=== PATIENT | female | born 1970 | race Caucasian/White ===

== ENCOUNTER 2022-08-01 18:25 | Inpatient (IN) | payer OTHER ==
[~2022-08-01] VITALS: Ht 165.1 cm; Wt 83.9 kg
[2022-08-01 18:32] VITALS: BP 185/116
--- NOTE | 2022-08-01 18:38 | NUR ---
pt ambulatory to bed 07
--- NOTE | 2022-08-01 18:48 | NUR ---
Lab at bedside.
--- NOTE | 2022-08-01 18:53 | NUR ---
Dr. Ng evaluating patient at bedside.
[2022-08-01 18:56] LABS: BASOPHILS # (AUTO) 0.1 K/uL (0.00-0.22); EOSINOPHILS # (AUTO) 0.1 K/uL (0-0.4); HEMATOCRIT 41.5 % (36-48); HEMOGLOBIN 14.2 g/dL (12.0-16.0); LYMPHOCYTES # (AUTO) 2.5 K/uL (2.5-16.5); LYMPHOCYTES % (AUTO) 37.6 % (20.5-51.1); MEAN CORPUSCULAR HEMOGLOBIN 30 pg (27-31); MEAN CORPUSCULAR HGB CONC 34 g/dL (33-37); MEAN CORPUSCULAR VOLUME 86.7 fL (80-94); MONOCYTES # (AUTO) 0.5 K/uL (0.8-1.0); MONOCYTES % (AUTO) 7.1 % (1.7-9.3); NEUTROPHILS # (AUTO) 3.5 K/uL (1.8-7.7); NEUTROPHILS % (AUTO) 52.3 % (42.2-75.2); PLATELET COUNT (AUTO) 309 K/uL (140-450); RED BLOOD CELL COUNT(AUTO) 4.79 MIL/uL (4.20-5.40); RED CELL DISTRIBUTION WIDTH 13.3 % (11.6-13.7); WHITE BLOOD COUNT (AUTO) 6.7 K/uL (4.8-10.8)
[2022-08-01 18:59] LABS: APPEARANCE,URINE CLEAR (CLEAR); BILIRUBIN,URINE NEGATIVE (NEGATIVE); BLOOD, URINE 3+ (NEGATIVE); COLOR,URINE YELLOW (YELLOW); LEUKOCYTE ESTERASE ,URINE NEGATIVE (NEGATIVE); NITRITE, URINE NEGATIVE (NEGATIVE); PH,URINE 6.5 (5.0-9.0); UGLUCOSE 3+ (NEGATIVE)
--- NOTE | 2022-08-01 19:12 | NUR ---
Ultrasound at bedside.
[2022-08-01 19:13] LABS: ALBUMIN 2.5 g/dL (3.4-5.0); ANION GAP 9.9 (8-16); CARBON DIOXIDE 29.2 mmol/L (21-32); CREATININE 1.7 mg/dL (0.6-1.3); POTASSIUM 4.1 mmol/L (3.5-5.1); TOTAL BILIRUBIN 0.2 mg/dL (0.0-1.0)
[2022-08-01 19:19] LABS: RBC,URINE 11-20 (MOD) /HPF (0-5)
--- NOTE | 2022-08-01 19:26 | NUR ---
Report given to SAMMY Hamilton for transfer of care.
[2022-08-01] MEDS ORDERED: ASPIRIN 325 MG TAB PO ONE (19:30)
[2022-08-01] MEDS ORDERED: hydrALAZINE 20 MG/ML VIAL IM ONE (20:45)
--- NOTE | 2022-08-01 21:15 | NUR ---
pt ambulatory to restroom without assistance
[2022-08-01] MEDS ORDERED: NITROGLYCERIN 0.4 MG TAB SL PRN (21:30)
--- NOTE | 2022-08-01 21:30 | NUR ---
CLINICALS AND FACESHEET FAXED
--- NOTE | 2022-08-01 22:54 | NUR ---
Patient will be admitted to care of Dr. Nj. Admited to Tele. Will go to [id number]. Belongings list completed. Report to Sofia.
--- NOTE | 2022-08-01 23:00 | NUR ---
ADMITTED PATIENT TO [facility] UNIT FROM ER VIA GURNEY WITH THE CC: MILD ABDOMINAL RLQ PAIN RADIATING TO THE BACK. PATIENT AWAKE ALERT ORIENTED X4, AMBULATORY. MRSA SCREENING DONE. CALL LIGHT WITHIN REACH. SAFETY MEASURES ARE IN PLACE. INSTRUCTED PATIENT TO BE NPO WITH UNDERSTANDING.
--- NOTE | 2022-08-01 23:44 | NUR ---
RECEIVED A CALL FROM [facility] REPORTING CRITICAL LAB VALUE TROPONIN 381. NOTIFIED DR. ROMERO, NO NEW ORDER MADE.
[2022-08-02] VITALS: BP 165/91
--- NOTE | 2022-08-02 00:30 | NUR ---
PATIENT BP 165/91 P-84. DR ROMERO MADE AWARE WITH ORDER TO CONTINUE TO MONITOR BP, NOTED.
[2022-08-02] MEDS: ACETAMINOPHEN 325 MG TAB PO PRN ×3 (01:14→20:34)
--- NOTE | 2022-08-02 01:14 | NUR ---
PATIENT COMPLAINED OF ABDOMINAL PAIN. MEDICATED.
--- NOTE | 2022-08-02 03:56 | NUR ---
TY FROM LAB CALLED REPORTING CRITICAL LAB VALUE TROPONIN 349 TRENDING DOWN.
[2022-08-02 04:00] VITALS: BP 145/78
--- NOTE | 2022-08-02 07:15 | NUR ---
RECEIVED REPORT FROM APPLICATIONS SYSTEMS ANALYST NURSE FOR CONTINUITY OF CARE. PT STABLE AT THIS TIME.
--- NOTE | 2022-08-02 07:16 | NUR ---
GAVE BEDSIDE REPORT TO AMEE ROSENBAUM FOR CONTINUITY OF CARE. PATIENT STABLE.
[2022-08-02 08:00] VITALS: BP 155/94
[2022-08-02] MEDS ORDERED: lisinopriL 20 MG TAB PO SCH ×2 (09:00→13:10)
[2022-08-02] MEDS ORDERED: METOPROLOL 25 MG TAB PO SCH (09:00)
[2022-08-02] MEDS ORDERED: ATORVASTATIN 20 MG TAB PO SCH (09:00)
[2022-08-02] MEDS ORDERED: ENOXAPARIN 40 MG/0.4 ML SYR SUBQ SCH (09:00)
[2022-08-02] MEDS: ASPIRIN 81 MG TAB.CHEW PO SCH (09:52)
[2022-08-02 11:45] LABS: BASOPHILS % (AUTO) 0.7 % (0.0-2.0); EOSINOPHILS # (AUTO) 0.1 K/uL (0-0.4); EOSINOPHILS % (AUTO) 2.7 % (0.0-4.0); HEMATOCRIT 37.7 % (36-48); HEMOGLOBIN 12.9 g/dL (12.0-16.0); LYMPHOCYTES # (AUTO) 2.3 K/uL (2.5-16.5); LYMPHOCYTES % (AUTO) 43.1 % (20.5-51.1); MEAN CORPUSCULAR HEMOGLOBIN 29 pg (27-31); MEAN CORPUSCULAR HGB CONC 34 g/dL (33-37); MONOCYTES # (AUTO) 0.3 K/uL (0.8-1.0); MONOCYTES % (AUTO) 6.4 % (1.7-9.3); NEUTROPHILS # (AUTO) 2.5 K/uL (1.8-7.7); NEUTROPHILS % (AUTO) 47.1 % (42.2-75.2); PLATELET COUNT (AUTO) 273 K/uL (140-450); RED BLOOD CELL COUNT(AUTO) 4.39 MIL/uL (4.20-5.40); RED CELL DISTRIBUTION WIDTH 13.2 % (11.6-13.7); WHITE BLOOD COUNT (AUTO) 5.4 K/uL (4.8-10.8)
[2022-08-02 12:00] VITALS: BP 156/95
[2022-08-02 12:17] LABS: ANION GAP 9.4 (8-16); CARBON DIOXIDE 25.4 mmol/L (21-32); CREATININE 1.1 mg/dL (0.6-1.3); POTASSIUM 3.8 mmol/L (3.5-5.1); TOTAL BILIRUBIN 0.2 mg/dL (0.0-1.0)
[2022-08-02 16:00] VITALS: BP 174/88
[2022-08-02] MEDS: hydrALAZINE 20 MG/ML VIAL IVP PRN (17:01)
--- NOTE | 2022-08-02 19:25 | NUR ---
ENDORSED PT TO BOTTOM TURNING LATHE TURNER NURSE FOR CONTINUITY OF CARE. PT IS STABLE AT THIS TIME.
--- NOTE | 2022-08-02 19:26 | NUR ---
RECD. RESTING IN BED, AWAKE, A/OX4. RESPIRATION EVEN AND UNLABORED. COLOR NORMAL PER ETHNICITY. IV SALINE LOCK AT THE RIGHT FOREARM G20, PATENT AND INTACT. AMBULATORY TO THE BR. DENIES PAIN 0/10.
[2022-08-02 20:00] VITALS: BP 135/71
[2022-08-02] MEDS: lisinopriL 20 MG TAB PO SCH (20:33)
[2022-08-02] MEDS: carvediloL 6.25 MG TAB PO SCH (20:33)
--- NOTE | 2022-08-02 20:33 | NUR ---
BP - 135/71, HR - 75. MEDICATED WITH SCHEDULED MEDICATIONS PER MD ORDER.
--- NOTE | 2022-08-02 22:00 | NUR ---
RESTING IN BED, WATCHING TV.
[2022-08-03] VITALS: BP 110/71
--- NOTE | 2022-08-03 | NUR ---
SLEEPING COMFORTABLY IN BED. RESPIRATION EVEN AND UNLABORED.
--- NOTE | 2022-08-03 02:00 | NUR ---
CHECKED PATIENT, SLEEPING ON HER RIGHT SIDE. COMFORTABLE IN BED.
--- NOTE | 2022-08-03 02:48 | NUR ---
Patient's Plan of Care was discussed and reviewed with SAMMY: LUZ
[2022-08-03 04:00] VITALS: BP 132/78
--- NOTE | 2022-08-03 04:00 | NUR ---
VS STABLE. NO COMPLAINT OF PAIN. SR WITH BBB ON TELE MONITORING.
--- NOTE | 2022-08-03 06:00 | NUR ---
STILL SLEEPING COMFORTABLY IN BED. RESPIRATION EVEN AND UNLABORED. CALL LIGHT IN REACH.
[2022-08-03 06:56] LABS: BASOPHILS % (AUTO) 0.7 % (0.0-2.0); EOSINOPHILS # (AUTO) 0.2 K/uL (0-0.4); EOSINOPHILS % (AUTO) 3.4 % (0.0-4.0); HEMATOCRIT 37.5 % (36-48); HEMOGLOBIN 12.8 g/dL (12.0-16.0); LYMPHOCYTES # (AUTO) 2.5 K/uL (2.5-16.5); LYMPHOCYTES % (AUTO) 39.9 % (20.5-51.1); MEAN CORPUSCULAR HEMOGLOBIN 30 pg (27-31); MEAN CORPUSCULAR HGB CONC 34 g/dL (33-37); MEAN CORPUSCULAR VOLUME 86.8 fL (80-94); MONOCYTES # (AUTO) 0.5 K/uL (0.8-1.0); MONOCYTES % (AUTO) 7.9 % (1.7-9.3); NEUTROPHILS % (AUTO) 48.1 % (42.2-75.2); PLATELET COUNT (AUTO) 277 K/uL (140-450); RED BLOOD CELL COUNT(AUTO) 4.32 MIL/uL (4.20-5.40); RED CELL DISTRIBUTION WIDTH 13.3 % (11.6-13.7); WHITE BLOOD COUNT (AUTO) 6.3 K/uL (4.8-10.8)
[2022-08-03 07:10] LABS: ANION GAP 9.5 (8-16); CARBON DIOXIDE 25.8 mmol/L (21-32); CREATININE 1.2 mg/dL (0.6-1.3); POTASSIUM 4.3 mmol/L (3.5-5.1); TOTAL BILIRUBIN 0.2 mg/dL (0.0-1.0)
--- NOTE | 2022-08-03 07:15 | NUR ---
CONDITION REMAIN STABLE. ENDORSED TO ILSA LUBIN FOR CONTINUITY OF CARE.
--- NOTE | 2022-08-03 07:15 | NUR ---
RECEIVED REPORT FROM SCALE MECHANIC NURSE FOR CONTINUITY OF CARE. PT STABLE AT THIS TIME.
[2022-08-03 08:00] VITALS: BP 143/83
[2022-08-03] MEDS: lisinopriL 20 MG TAB PO SCH ×2 (08:38→20:07)
[2022-08-03] MEDS: ASPIRIN 81 MG TAB.CHEW PO SCH (08:38)
[2022-08-03] MEDS: carvediloL 6.25 MG TAB PO SCH ×2 (08:39→20:07)
[2022-08-03] MEDS: ATORVASTATIN 20 MG TAB PO SCH (08:39)
[2022-08-03] MEDS: ENOXAPARIN 40 MG/0.4 ML SYR SUBQ SCH (08:39)
--- NOTE | 2022-08-03 10:03 | NUR ---
PATIENT HAS BEEN SCREENED AND CATEGORIZED MODERATE NUTRITION RISK. PATIENT WILL BE SEEN WITHIN 3-5 DAYS OF ADMISSION. 08/01/22-08/06/[address]
[2022-08-03] MEDS ORDERED: INSULIN LISPRO SLIDING SCALE 100 UNITS/ML VIAL SUBQ PRN (11:15)
[2022-08-03] MEDS ORDERED: DEXTROSE 50% 50 ML SYR IVP PRN (11:25)
[2022-08-03] MEDS: BLOOD GLUCOSE MONITORING 1 DEV DEV FS SCH ×3 (11:48→20:07)
[2022-08-03] MEDS: INSULIN LISPRO SLIDING SCALE 100 UNITS/ML VIAL SUBQ PRN ×3 (11:51→20:08)
[2022-08-03 12:00] VITALS: BP 146/85
[2022-08-03] MEDS ORDERED: REGADENOSON 0.4 MG/5 ML SYR IV SCH (15:45)
[2022-08-03 16:00] VITALS: BP 146/78
--- NOTE | 2022-08-03 19:16 | NUR ---
ENDORSED PT TO INTERPRETIVE PROGRAM COORDINATOR NURSE FOR CONTINUITY OF CARE. PT IS STABLE AT THIS TIME.
--- NOTE | 2022-08-03 19:20 | NUR ---
RECEIVED PT IN BED AWAKE, ALERT AND ORIENTED X 4. FAMILY MEMBERS AT THE BEDSIDE. DENIES PAIN. DENIES SHORTNESS OF BREATH. SKIN WARM AND DRY TO TOUCH. SAFETY PRECAUTIONS IN PLACE, CALL LIGHT IN REACH, ENCOURAGED TO CALL IF ASSISTANCE IS NEEDED, PT VERBALLY ACKNOWLEDGED.
[2022-08-03 19:53] VITALS: BP 164/92
--- NOTE | 2022-08-03 20:10 | NUR ---
SCHEDULED MEDICATIONS GIVEN ORDERED. BS-248 MG/DL, INSULIN GIVEN PER SLIDING SCALE COVERAGE ORDERED.
--- NOTE | 2022-08-03 20:25 | NUR ---
PROVIDED HS SNACKS. PT AWARE OF NPO STATUS AFTER MIDNIGHT.
[2022-08-04] VITALS: BP 147/81
--- NOTE | 2022-08-04 | NUR ---
VITAL SIGNS TAKEN AND DOCUMENTED, WITHIN NORMAL LIMITS. REMINDED PT, CURRENTLY NPO, PT VERBALLY ACKNOWLEDGED. DENIES PAIN. CALL LIGHT WITHIN REACH.
[2022-08-04 04:00] VITALS: BP 149/79
[2022-08-04 05:29] LABS: BASOPHILS % (AUTO) 0.5 % (0.0-2.0); EOSINOPHILS # (AUTO) 0.2 K/uL (0-0.4); EOSINOPHILS % (AUTO) 3.1 % (0.0-4.0); HEMATOCRIT 39.5 % (36-48); HEMOGLOBIN 13.5 g/dL (12.0-16.0); LYMPHOCYTES # (AUTO) 2.9 K/uL (2.5-16.5); LYMPHOCYTES % (AUTO) 44.7 % (20.5-51.1); MEAN CORPUSCULAR HEMOGLOBIN 30 pg (27-31); MEAN CORPUSCULAR HGB CONC 34 g/dL (33-37); MEAN CORPUSCULAR VOLUME 87.5 fL (80-94); MONOCYTES # (AUTO) 0.4 K/uL (0.8-1.0); NEUTROPHILS # (AUTO) 2.9 K/uL (1.8-7.7); NEUTROPHILS % (AUTO) 45.7 % (42.2-75.2); PLATELET COUNT (AUTO) 282 K/uL (140-450); RED BLOOD CELL COUNT(AUTO) 4.52 MIL/uL (4.20-5.40); RED CELL DISTRIBUTION WIDTH 13.2 % (11.6-13.7); WHITE BLOOD COUNT (AUTO) 6.4 K/uL (4.8-10.8)
[2022-08-04 05:37] LABS: ANION GAP 9.3 (8-16); CARBON DIOXIDE 28.3 mmol/L (21-32); CREATININE 1.1 mg/dL (0.6-1.3); POTASSIUM 4.6 mmol/L (3.5-5.1)
[2022-08-04] MEDS: BLOOD GLUCOSE MONITORING 1 DEV DEV FS SCH ×3 (06:30→16:30)
[2022-08-04] MEDS: INSULIN LISPRO SLIDING SCALE 100 UNITS/ML VIAL SUBQ PRN (06:32)
--- NOTE | 2022-08-04 06:42 | NUR ---
PATIENT IS ASLEEP. NO DISTRESS NOTED. ALL NEEDS ATTENDED TO. SAFETY PRECAUTIONS MAINTAINED DURING THE SHIFT, CALL LIGHT REMAINS WITHIN REACH.
[2022-08-04 08:00] VITALS: BP 171/82
[2022-08-04] MEDS: hydrALAZINE 20 MG/ML VIAL IVP PRN (10:09)
[2022-08-04] MEDS: lisinopriL 20 MG TAB PO SCH (10:10)
[2022-08-04] MEDS: ASPIRIN 81 MG TAB.CHEW PO SCH (10:10)
[2022-08-04] MEDS: carvediloL 6.25 MG TAB PO SCH (10:10)
[2022-08-04] MEDS: ATORVASTATIN 20 MG TAB PO SCH (10:11)
[2022-08-04] MEDS: ENOXAPARIN 40 MG/0.4 ML SYR SUBQ SCH (10:12)
--- NOTE | 2022-08-04 12:07 | NUR ---
DC [age] YRS OLD FEMALE PATIENT WAS ADMITTED FROM HOME WITH A DX OF NSTEMI AND HTN EMERGENCY PATENT HAS A HX OF FIBROSIS. CXR SHOWED PROMINENT PULMONARY VASCULARITY. PELVIS ULTRASOUND SHOWED SMALL INTRAMURAL FIBROID IN THE ANTERIOR UTERUS. RAPID COVID TEST NEGATIVE. ADMINISTERED ACS PROTOCOL MEDS. SEEN BY CARDIO AND ORDERED DELANEY SCAN AT 11:30 . DC PLAN AWAITING FOR DELANEY SCAN RESULT. CM TO FOLLOW
[2022-08-04] MEDS: ACETAMINOPHEN 325 MG TAB PO PRN (14:10)
[2022-08-04] MEDS ORDERED: CARV6.252 PO (14:53)
[2022-08-04] MEDS ORDERED: ASPI81CT95 PO (14:53)
[2022-08-04] MEDS ORDERED: LISI20TA29 PO (14:53)
[2022-08-04] MEDS ORDERED: ATOR20TA40 PO (14:53)
[2022-08-04 15:35] VITALS: BP 147/90
--- NOTE | 2022-08-04 18:14 | NUR ---
PT INFORMED OF DISCHARGE. DISCHARGE TEACHINGS PROVIDED. PT SIGNED DC PAPERWORK. ID BAND REMOVED, IV REMOVED. NO SIGNS OF DISTRESS, NO REPORTS OF PAIN OR DISCOMFORT. PT LEFT UNIT WITH PARTNER AND MOM.
== END 2022-08-04 18:00 | disposition home or self-care (01) | DRG 190 ==
LOC: MED 18:25 → MTU 21:45
PROVIDERS: ADMIT Family Medicine; ATTEND Family Medicine
DX: I21.4 Non-ST elevation (NSTEMI) myocardial infarction (principal); N17.0 Acute kidney failure with tubular necrosis; R65.11 Systemic inflammatory response syndrome (SIRS) of non-infectious origin with acute organ dysfunction; I16.1 Hypertensive emergency; E46 Unspecified protein-calorie malnutrition; E11.65 Type 2 diabetes mellitus with hyperglycemia; D25.9 Leiomyoma of uterus, unspecified; R31.9 Hematuria, unspecified; Z20.822 Contact with and (suspected) exposure to COVID-19; I50.30 Unspecified diastolic (congestive) heart failure
CPT/HCPCS: 36415; 71045; 76770; 76830; 80048; 80053; 81001; 82948; 83036; 83690; 83735; 83880; 84484; 85025; 87081; 93005; 93017; 96372; 99285; A9500; A9502; J0360; J1650; J2785; Q0092

== ENCOUNTER 2023-01-17 14:38 | Inpatient (IN) | payer OTHER ==
[~2023-01-17] VITALS: Ht 165.1 cm; Wt 81.2 kg
[~2023-01-17 14:38] MED LIST: ASPI81CT95 PO; ATOR20TA40 PO; CARV6.252 PO; LISI20TA29 PO
[2023-01-17 15:06] VITALS: BP 193/111; PULSE 84; RESP 20; TEMP 98.4; O2SAT 98
[2023-01-17 17:56] LABS: BASOPHILS % (AUTO) 0.6 % (0.0-2.0); EOSINOPHILS # (AUTO) 0.2 K/uL (0-0.4); EOSINOPHILS % (AUTO) 2.5 % (0.0-4.0); HEMATOCRIT 39.6 % (36-48); HEMOGLOBIN 13.4 g/dL (12.0-16.0); LYMPHOCYTES # (AUTO) 3.4 K/uL (2.5-16.5); LYMPHOCYTES % (AUTO) 41.3 % (20.5-51.1); MEAN CORPUSCULAR HEMOGLOBIN 29 pg (27-31); MEAN CORPUSCULAR HGB CONC 34 g/dL (33-37); MEAN CORPUSCULAR VOLUME 85.8 fL (80-94); MONOCYTES # (AUTO) 0.5 K/uL (0.8-1.0); MONOCYTES % (AUTO) 5.5 % (1.7-9.3); NEUTROPHILS # (AUTO) 4.1 K/uL (1.8-7.7); NEUTROPHILS % (AUTO) 50.1 % (42.2-75.2); PLATELET COUNT (AUTO) 298 K/uL (140-450); RED BLOOD CELL COUNT(AUTO) 4.61 MIL/uL (4.20-5.40); RED CELL DISTRIBUTION WIDTH 13.1 % (11.6-13.7); WHITE BLOOD COUNT (AUTO) 8.3 K/uL (4.8-10.8)
[2023-01-17 18:09] LABS: ALBUMIN 2.7 g/dL (3.4-5.0); CALCIUM 9.4 mg/dL (8.5-10.1); CARBON DIOXIDE 25.9 mmol/L (21-32); POTASSIUM 3.9 mmol/L (3.5-5.1); TOTAL BILIRUBIN 0.2 mg/dL (0.0-1.0); TOTAL PROTEIN, SERUM 7.4 g/dL (6.4-8.2)
[2023-01-17] MEDS ORDERED: ASPIRIN 325 MG TAB PO ONE (18:25)
[2023-01-17 18:54] VITALS: BP 139/77; PULSE 79; RESP 20; TEMP 98.4; O2SAT 98
[2023-01-17] MEDS ORDERED: MORPHINE SULFATE 2 MG/ML SYR IVP PRN (20:55)
[2023-01-17] MEDS ORDERED: HYDROcodone/APAP 5/325 MG 1 TAB TAB PO PRN (20:55)
[2023-01-17] MEDS ORDERED: ACETAMINOPHEN 325 MG TAB PO PRN (20:55)
[2023-01-17] MEDS ORDERED: ONDANSETRON 4 MG/2 ML VIAL IVP PRN (20:55)
[2023-01-17] MEDS ORDERED: INSULIN LISPRO SLIDING SCALE 100 UNITS/ML VIAL SUBQ PRN (21:35)
[2023-01-17] MEDS ORDERED: LOSARTAN 25 MG TAB PO SCH (21:35)
[2023-01-17] MEDS ORDERED: ENOXAPARIN 40 MG/0.4 ML SYR SUBQ SCH (21:35)
[2023-01-17] MEDS ORDERED: DEXTROSE 50% 50 ML SYR IVP PRN (21:35)
[2023-01-17] MEDS ORDERED: ATORVASTATIN 80 MG TAB PO SCH (21:35)
[2023-01-17] MEDS ORDERED: METOPROLOL SUCCINATE 50 MG TABER PO SCH (21:35)
[2023-01-18 01:21] LABS: CHOL/HDL RATIO 7.1 (1-4.5)
[2023-01-18] MEDS ORDERED: BLOOD GLUCOSE MONITORING 1 DEV DEV FS SCH (07:30)
[2023-01-18] MEDS ORDERED: ENOXAPARIN 40 MG/0.4 ML SYR SUBQ SCH (09:00)
[2023-01-18] MEDS ORDERED: ASPIRIN 81 MG TAB.CHEW PO SCH (09:00)
[2023-01-18] MEDS ORDERED: ATORVASTATIN 80 MG TAB PO SCH (09:00)
[2023-01-18] MEDS ORDERED: METOPROLOL SUCCINATE 50 MG TABER PO SCH (09:00)
[2023-01-18] MEDS ORDERED: LOSARTAN 25 MG TAB PO SCH (09:00)
== END 2023-01-17 22:40 | disposition left against medical advice (07) | DRG 190 ==
LOC: MED 14:38 → MTU 21:04
PROVIDERS: ADMIT Student in an Organized Health Care Education/Training Program; ATTEND Student in an Organized Health Care Education/Training Program
DX: I21.4 Non-ST elevation (NSTEMI) myocardial infarction (principal); E44.0 Moderate protein-calorie malnutrition; E11.65 Type 2 diabetes mellitus with hyperglycemia; I50.9 Heart failure, unspecified; I11.0 Hypertensive heart disease with heart failure; E78.5 Hyperlipidemia, unspecified; Z53.29 Procedure and treatment not carried out because of patient's decision for other reasons; Z68.29 Body mass index [BMI] 29.0-29.9, adult
CPT/HCPCS: 36415; 71045; 80053; 83036; 83880; 84484; 85025; 93005; 99285; J1650; Q0092

== ENCOUNTER 2023-07-19 19:26 | Emergency (ER) | payer OTHER ==
[~2023-07-19] VITALS: Ht 165.1 cm; Wt 81.2 kg
[2023-07-19 19:42] VITALS: BP 184/98; PULSE 86; RESP 20; TEMP 97.4; O2SAT 97
[2023-07-19 21:36] VITALS: BP 184/98; PULSE 86; RESP 20; TEMP 97.4; O2SAT 97
== END 2023-07-19 21:28 | disposition left against medical advice (07) ==
LOC: MED 19:26
DX: I10 Essential (primary) hypertension (principal); Z53.21 Procedure and treatment not carried out due to patient leaving prior to being seen by health care provider